=== PATIENT | male | born 1970 | race Caucasian/White ===

== ENCOUNTER 2017-11-28 19:48 | Observation (INO) | payer BC ==
[2017-11-28] MEDS ORDERED: IPRATROPIUM-ALBUTEROL 3 ML NEB INHALATION STA (20:10)
[2017-11-28] MEDS ORDERED: SODIUM CHLORIDE 0.9% 1,000 ML IV STA ×2 (20:10)
[2017-11-28] MEDS ORDERED: KETOROLAC 30 MG/ML 1 ML VIAL IVP STA (20:20)
[2017-11-28 20:22] LABS: Glucose,Whole Blood 173 mg/dL (75-99)
[2017-11-28 20:42] LABS: D-Dimer 0.4 mg/L FEU (<0.60)
[2017-11-28 20:43] LABS: Albumin 5.1 g/dL (3.5-5.0); Calcium 9.8 mg/dL (8.4-10.2); Magnesium 1.7 mg/dL (1.6-2.3); Potassium 4.1 mmol/L (3.5-5.1); Total Bilirubin 1.9 mg/dL (0.2-1.3); Total Protein 7.8 g/dL (6.3-8.2)
[2017-11-28] MEDS ORDERED: LABETALOL 5 MG/ML VIAL MDV IVP STA (20:44)
--- NOTE | 2017-11-28 20:45 | ED ---
General Adult HPI - General Chief complaint: Chest Pain Stated complaint: Chest tightness Time Seen by Provider: 11/28/17 20:10 Source: patient, RN notes reviewed, old records reviewed Mode of arrival: wheelchair Limitations: no limitations - History of Present Illness Initial comments: This is a 39-year-old male to the ER for evaluation. Patient presented for multiple nonspecific symptoms. Patient states he has history of severe hypertension. Patient's blood pressure been elevated at home and has not been feeling well. Patient is recent blood pressure changes [facility] and was started on a new blood pressure medication yesterday. Patient's blood pressure still is is reviewed and is remained pretty labile. He also had some mild chest pain today but insignificant may be just palpitations. No shortness of breath. - Related Data Home Medications Medication Instructions Recorded Confirmed Atorvastatin [Lipitor] 13.3 mg PO HS 11/28/17 11/28/17 Carvedilol [Coreg] 6.25 mg PO BID 11/28/17 11/28/17 Hydrochlorothiazide [Hydrodiuril] 25 mg PO DAILY PRN 11/28/17 11/28/17 Losartan [Cozaar] 50 mg PO BID 11/28/17 11/28/17 amLODIPine [Norvasc] 10 mg PO HS 11/28/17 11/28/17 hydrALAZINE HCL [Apresoline] 75 mg PO BID 11/28/17 11/28/17 Allergies Allergy/AdvReac Type Severity Reaction Status Date / Time No Known Allergies Allergy Verified 11/28/17 20:44 Review of Systems ROS Statement: Those systems with pertinent positive or pertinent negative responses have been documented in the HPI. ROS Other: All systems not noted in ROS Statement are negative. Past Medical History Past Medical History: Asthma, Heart Failure, Hyperlipidemia Additional Past Medical History / Comment(s): 715-15 CHF AND HIGH BP AND C/O SEEING BLACK SPOTS IN VISION, ASTHMA CHILD History of Any Multi-Drug Resistant Organisms: None Reported Past Surgical History: No Surgical Hx Reported Past Anesthesia/Blood Transfusion Reactions: No Reported Reaction Past Psychological History: No Psychological Hx Reported Smoking Status: Former smoker Past Alcohol Use History: Abuse Past Drug Use History: Marijuana - Past Family History Mother Family Medical History: No Reported History Father Family Medical History: Congestive Heart Failure (CHF), Hyperlipidemia, Hypertension General Exam Limitations: no limitations General appearance: alert, in no apparent distress Head exam: Present: atraumatic, normocephalic, normal inspection Eye exam: Present: normal appearance, PERRL, EOMI. Absent: scleral icterus, conjunctival injection, periorbital swelling ENT exam: Present: normal exam, mucous membranes moist Neck exam: Present: normal inspection. Absent: tenderness, meningismus, lymphadenopathy Respiratory exam: Present: normal lung sounds bilaterally. Absent: respiratory distress, wheezes, rales, rhonchi, stridor Cardiovascular Exam: Present: normal rhythm, tachycardia, normal heart sounds. Absent: systolic murmur, diastolic murmur, rubs, gallop, clicks GI/Abdominal exam: Present: soft, normal bowel sounds. Absent: distended, tenderness, guarding, rebound, rigid Extremities exam: Present: normal inspection, full ROM, normal capillary refill. Absent: tenderness, pedal edema, joint swelling, calf tenderness Back exam: Present: normal inspection Neurological exam: Present: alert, oriented X3, CN II-XII intact Psychiatric exam: Present: normal affect, normal mood Skin exam: Present: warm, dry, intact, normal color. Absent: rash Course Vital Signs 11/28/17 11/28/17 11/28/17 20:00 20:28 20:57 Temperature 97.4 F L Pulse Rate 109 H 85 Respiratory 22 24 18 Rate Blood Pressure 174/99 191/92 O2 Sat by Pulse 100 100 Oximetry - Reevaluation(s) Reevaluation #1: 11/28/17 22:16 Patient's blood pressure at this point is much improved EKG Findings - EKG Comments: EKG Findings:: EKG shows normal sinus rhythm rate of 90, NC 186, QRS 94, QTC 440 Medical Decision Making - Medical Decision Making 47 male the ER with chest pain and uncontrolled blood pressure. Patient be admitted for tighter blood pressure control and evaluation by cardiology - Lab Data Result diagrams: 11/28/17 20:45 11/28/17 20:20 Lab Results 11/28/17 11/28/17 11/28/17 Range/Units 20:18 20:20 20:20 WBC (3.8-10.6) k/uL RBC (4.30-5.90) m/uL Hgb (13.0-17.5) gm/dL Hct (39.0-53.0) % MCV (80.0-100.0) fL MCH (25.0-35.0) pg MCHC (31.0-37.0) g/dL RDW (11.5-15.5) % Plt Count (150-450) k/uL Neutrophils % % Lymphocytes % % Monocytes % % Eosinophils % % Basophils % % Neutrophils # (1.3-7.7) k/uL Lymphocytes # (1.0-4.8) k/uL Monocytes # (0-1.0) k/uL Eosinophils # (0-0.7) k/uL Basophils # (0-0.2) k/uL PT (9.0-12.0) sec INR (<1.2) APTT (22.0-30.0) sec D-Dimer (<0.60) mg/L FEU Sodium 134 L (137-145) mmol/L Potassium 4.1 (3.5-5.1) mmol/L Chloride 96 L (98-107) mmol/L Carbon Dioxide 21 L (22-30) mmol/L Anion Gap 17 mmol/L BUN 17 (9-20) mg/dL Creatinine 1.37 H (0.66-1.25) mg/dL Est GFR (CKD-EPI)AfAm 70 (>60 ml/min/1.73 sqM) Est GFR (CKD-EPI)NonAf 61 (>60 ml/min/1.73 sqM) Glucose 159 H (74-99) mg/dL POC Glucose (mg/dL) 173 H (75-99) mg/dL POC Glu Flamer After Lasting ID Trina Infante Calcium 9.8 (8.4-10.2) mg/dL Magnesium 1.7 (1.6-2.3) mg/dL Total Bilirubin 1.9 H (0.2-1.3) mg/dL AST 32 (17-59) U/L ALT 34 (21-72) U/L Alkaline Phosphatase 78 (38-126) U/L Total Creatine Kinase 186 H (55-170) U/L CK-MB (CK-2) 1.0 (0.0-2.4) ng/mL CK-MB (CK-2) Rel Index 0.5 Troponin I 0.013 (0.000-0.034) ng/mL NT-Pro-B Natriuret Pep pg/mL Total Protein 7.8 (6.3-8.2) g/dL Albumin 5.1 H (3.5-5.0) g/dL 11/28/17 11/28/17 11/28/17 Range/Units 20:20 20:45 20:45 WBC 6.6 (3.8-10.6) k/uL RBC 4.74 (4.30-5.90) m/uL Hgb 13.9 (13.0-17.5) gm/dL Hct 39.6 (39.0-53.0) % MCV 83.5 (80.0-100.0) fL MCH 29.3 (25.0-35.0) pg MCHC 35.1 (31.0-37.0) g/dL RDW 12.7 (11.5-15.5) % Plt Count 164 (150-450) k/uL Neutrophils % 73 % Lymphocytes % 15 % Monocytes % 8 % Eosinophils % 2 % Basophils % 0 % Neutrophils # 4.9 (1.3-7.7) k/uL Lymphocytes # 1.0 (1.0-4.8) k/uL Monocytes # 0.5 (0-1.0) k/uL Eosinophils # 0.1 (0-0.7) k/uL Basophils # 0.0 (0-0.2) k/uL PT 9.5 (9.0-12.0) sec INR 0.9 (<1.2) APTT 22.4 (22.0-30.0) sec D-Dimer 0.40 (<0.60) mg/L FEU Sodium (137-145) mmol/L Potassium (3.5-5.1) mmol/L Chloride (98-107) mmol/L Carbon Dioxide (22-30) mmol/L Anion Gap mmol/L BUN (9-20) mg/dL Creatinine (0.66-1.25) mg/dL Est GFR (CKD-EPI)AfAm (>60 ml/min/1.73 sqM) Est GFR (CKD-EPI)NonAf (>60 ml/min/1.73 sqM) Glucose (74-99) mg/dL POC Glucose (mg/dL) (75-99) mg/dL POC Glu Flamer After Lasting ID Calcium (8.4-10.2) mg/dL Magnesium (1.6-2.3) mg/dL Total Bilirubin (0.2-1.3) mg/dL AST (17-59) U/L ALT (21-72) U/L Alkaline Phosphatase (38-126) U/L Total Creatine Kinase (55-170) U/L CK-MB (CK-2) (0.0-2.4) ng/mL CK-MB (CK-2) Rel Index Troponin I (0.000-0.034) ng/mL NT-Pro-B Natriuret Pep <11 pg/mL Total Protein (6.3-8.2) g/dL Albumin (3.5-5.0) g/dL - Radiology Data Radiology results: report reviewed (Chest x-rays negative for acute disease), image reviewed Disposition Clinical Impression: Hypertensive urgency, Chest pain Disposition: ADMITTED IP TO THIS [facility] Condition: Fair Referrals: Suzy Mortensen MD [Primary Care Provider] - 1-2 days
[2017-11-28 20:46] LABS: INR 0.9 (<1.2); Prothrombin Time 9.5 sec (9.0-12.0)
[2017-11-28 20:52] LABS: Partial Thromboplastin Time 22.4 sec (22.0-30.0)
--- NOTE | 2017-11-28 20:55 | XR ---
EXAMINATION: XR chest 1V portable DATE AND TIME: 11/28/2017 8:29 PM ORDERING PROVIDER: Yovani Ludwig DO CLINICAL INDICATION: sob TECHNIQUE: AP upright portable COMPARISON: 03/22/2015 DESCRIPTION: The lungs are clear. The pleural spaces are negative. The cardiac silhouette is not enlarged. The mediastinal and pleural silhouettes are unremarkable. The skeletal structures are intact without focal findings. The soft tissues are unremarkable. IMPRESSION: NO ACUTE PROCESS.
[2017-11-28 20:58] LABS: Troponin I 0.013 ng/mL (0.000-0.034)
[2017-11-28 20:59] LABS: Basophils % (A) 0 %; Eosinophils # (A) 0.1 k/uL (0-0.7); Eosinophils % (A) 2 %; HCT 39.6 % (39.0-53.0); HGB 13.9 gm/dL (13.0-17.5); Lymphocytes % (A) 15 %; MCH 29.3 pg (25.0-35.0); MCHC 35.1 g/dL (31.0-37.0); MCV 83.5 fL (80.0-100.0); Mean Platelet Volume 8.5; Monocytes # (A) 0.5 k/uL (0-1.0); Monocytes % (A) 8 %; Neutrophils # (A) 4.9 k/uL (1.3-7.7); Neutrophils % (A) 73 %; Platelet Count 164 k/uL (150-450); RBC 4.74 m/uL (4.30-5.90); RDW 12.7 % (11.5-15.5); WBC 6.6 k/uL (3.8-10.6)
[2017-11-28] MEDS ORDERED: NITROGLYCERIN SL TABS 0.4 MG TAB SUBLINGUAL PRN (22:14)
[2017-11-28] MEDS ORDERED: ASPIRIN 81 MG PO STA (22:14)
[2017-11-28] MEDS ORDERED: MORPHINE SULFATE/PF 10MG/10ML VL IV PRN (22:14)
[2017-11-28] MEDS ORDERED: SODIUM CHLORIDE 0.9% 1,000 ML IV SCH (22:15)
[2017-11-28] MEDS ORDERED: HYDROCHLOROTHIAZIDE 25 MG TAB PO PRN (22:15)
[2017-11-29 00:30] VITALS: BMI 28.5
[2017-11-29] MEDS ORDERED: amLODIPine 10 MG TAB PO STA (01:00)
[2017-11-29] MEDS ORDERED: CARVEDILOL 6.25 MG TAB PO STA (01:02)
[2017-11-29] MEDS ORDERED: LOSARTAN 50 MG TAB PO STA (01:02)
[2017-11-29] MEDS ORDERED: hydrALAZINE HCL 25 MG TAB PO STA (01:03)
[2017-11-29 03:18] LABS: Cholesterol 116 mg/dL (<200); HDL Cholesterol 52 mg/dL (40-60); LDL Cholesterol,Calculated 50 mg/dL (0-99); Triglycerides 69 mg/dL (<150)
[2017-11-29 03:32] LABS: Creatine Kinase 139 U/L (55-170)
[2017-11-29 03:45] LABS: Creatine Kinase MB 0.6 ng/mL (0.0-2.4); Troponin I <0.012 ng/mL (0.000-0.034)
[2017-11-29 04:55] VITALS: RESP 16
[2017-11-29] MEDS ORDERED: CARVEDILOL 6.25 MG TAB PO SCH (07:30)
[2017-11-29] MEDS ORDERED: ASPIRIN 325 MG TAB PO SCH (09:00)
[2017-11-29] MEDS ORDERED: hydrALAZINE HCL 25 MG TAB PO SCH (09:00)
[2017-11-29] MEDS ORDERED: LOSARTAN 50 MG TAB PO SCH (09:00)
[2017-11-29] MEDS ORDERED: METOPROLOL TARTRATE 50 MG TAB PO SCH (09:00)
[2017-11-29 09:09] LABS: Creatine Kinase 133 U/L (55-170)
[2017-11-29 09:20] LABS: Creatine Kinase MB 0.7 ng/mL (0.0-2.4); Troponin I <0.012 ng/mL (0.000-0.034)
--- NOTE | 2017-11-29 09:42 | CONS ---
CONSULTATION CHIEF COMPLAINT: Uncontrolled hypertension. HISTORY OF PRESENT ILLNESS: This is a 47-year-old gentleman with history of hypertension who has had somewhat of a poorly controlled blood pressures over the last several days and had his medications adjusted following which he started feeling dizzy, was in the [facility] and subsequently came to the ER. His blood pressures were poorly controlled on initial presentation, but he did not have any chest pain, palpitations, or syncope. He did not have any focal neurological deficits. At the time of my evaluation this morning, he appears comfortable at rest and is free of symptoms and ruled out for myocardial infarction. EKG does not reveal significant ST-T wave changes. His blood pressures are well controlled. LABS: Show that the hemoglobin is normal. D-dimer is normal. Two sets of troponins are negative and LDL cholesterol is negative. I had a long conversation with the patient about his hypertension treatment and long- term followup plans. I asked him to come have his blood pressure checked through my office, or go to Dr. Mortensen's office and have it checked. I will obtain a 2D echo on him and we should be able to discharge him home. PAST MEDICAL HISTORY: Significant for hypertension and dyslipidemia. MEDICATIONS: Include Apresoline 75 b.i.d., Norvasc 10 daily, losartan 50 b.i.d., HydroDIURIL 25 daily, Coreg 6.25 b.i.d., and Lipitor. ALLERGIES: There are no known drug allergies. FAMILY HISTORY: Negative for premature coronary artery disease. SOCIAL HISTORY: Negative for smoking. ETOH or drug abuse. REVIEW OF SYSTEMS: HEENT is unremarkable. Cardiac as described above. Respiratory negative. GI negative. negative. Allergy/immunology: Negative. Skin negative. Musculoskeletal negative. Endocrine negative. Oncological: Negative. Derm negative. Constitutional: Negative. Rest of the system review is not relevant. PHYSICAL EXAMINATION: On exam, comfortable at rest. Vital signs are stable. There is no jugular venous distention. Carotid upstroke is normal. There is no bruit. Chest exam reveals good air entry bilaterally. Heart exam reveals first and second heart sounds. No gallop. No murmur. No rub. Abdomen is soft, nontender. Exam of extremities did not reveal any edema. Peripheral pulses are felt. 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 LABORATORY DATA: Labs have been as reviewed. EKG appears normal. ASSESSMENT: Uncontrolled hypertension. PLAN: I will continue the patient on his current medications. Blood pressures are very well controlled. Cut back on the dose of the hydralazine to 50 b.i.d. from 75 b.i.d. continue rest of his medications. Obtain a 2D echo. Discharge him home and arrange outpatient followup through my office. ANDRY / AYAN: [id number] /
[2017-11-29] MEDS ORDERED: ACETAMINOPHEN TAB 325 MG TAB PO PRN (11:16)
[2017-11-29 12:05] VITALS: PULSE 72
--- NOTE | 2017-11-29 14:10 | ECHOF ---
Referral Reason:chest pain MEASUREMENTS -------- HEIGHT: 152.4 cm WEIGHT: 87.5 kg BP: RVIDd: 3.1 cm (< 3.3) IVSd: 1.3 cm (0.6 - 1.1) LVIDd: 4.1 cm (3.9 - 5.3) LVPWd: 1.2 cm (0.6 - 1.1) IVSs: 1.4 cm LVIDs: 3.0 cm LVPWs: 1.3 cm LA Diam: 3.1 cm (2.7 - 3.8) LAESV Index (A-L): 23.13 ml/m Ao Diam: 3.0 cm (2.0 - 3.7) AV Cusp: 1.7 cm (1.5 - 2.6) LA Diam: 3.1 cm (2.7 - 3.8) MV EXCURSION: 18.872 mm (> 18.000) MV EF SLOPE: 109 mm/s (70 - 150) EPSS: 0.2 cm MV E Edward: 0.69 m/s MV DecT: 228 ms MV A Edward: 0.68 m/s MV E/A Ratio: 1.02 RAP: 5.00 mmHg RVSP: 14.63 mmHg FINDINGS -------- Sinus rhythm. This was a technically good study. The left ventricular size is normal. There is mild concentric left ventricular hypertrophy. Overa ll left ventricular systolic function is normal with, an EF between 55 - 60 %. The right ventricle is normal in size. The left atrial size is normal. Normal LA size by volume 22+/-6 ml/m2. The right atrial size is normal. The aortic valve is trileaflet, and appears structurally normal. No aortic stenosis or regurgitation. Mild mitral regurgitation is present. Mild tricuspid regurgitation present. There is no evidence of pulmonary hypertension. The right v entricular systolic pressure, as measured by Doppler, is 14.63mmHg. There is no pulmonic regurgitation present. The aortic root size is normal. There is no pericardial effusion. CONCLUSIONS -------- 1. The left ventricular size is normal. 2. There is mild concentric left ventricular hypertrophy. 3. Overall left ventricular systolic function is normal with, an EF between 55 - 60 %. 4. Normal LA size by volume 22+/-6 ml/m2. 5. The aortic valve is trileaflet, and appears structurally normal. No aortic stenosis or regurgitati on. 6. Mild mitral regurgitation is present. 7. Mild tricuspid regurgitation present. 8. There is no evidence of pulmonary hypertension. 9. The right ventricular systolic pressure, as measured by Doppler, is 14.63mmHg. 10. There is no pulmonic regurgitation present. 11. The aortic root size is normal. 12. There is no pericardial effusion. HAUL TRUCK DRIVER: Sheron Ramirez RDCS
[2017-11-29 16:02] VITALS: BP 131/75; TEMP 97.9
--- NOTE | 2017-11-29 18:26 | P.HPIM ---
History of Present Illness Patient is a very pleasant 39-year-old gentleman came in to ER because of elevated blood pressure which led to anxiety patient denied any severe chest pain patient denied any fever chills nausea vomiting. Patient the blood pressure was highly elevated to 1.190 because of which he became concerned came to ER. Patient was given a few doses of hydralazine. Patient's elevation of blood pressure is found to be secondary to inappropriate measuring of blood pressure at home. Appropriate way to measure blood pressure counseling was provided. Patient is on hydrocodone thiazide which is being discontinued as his blood pressures seem to be on the low normal side and the due to renal dysfunction as well as hyponatremia patient appears to have chronic kidney disease from hypertensive nephrosclerosis. Given hydralazine dose was decreased to 250 twice a day from 75 twice a day patient will check his blood pressure twice a day and the take it to the primary care physician where his blood pressure medications can be titrated. Review of Systems REVIEW OF SYSTEMS: CONSTITUTIONAL: No fever, no malaise, no fatigue. HEENT: No recent visual problems or hearing problems. Denied any sore throat. CARDIOVASCULAR: No chest pain, orthopnea, PND, no palpitations, no syncope. PULMONARY: No shortness of breath, no cough, no hemoptysis. GASTROINTESTINAL: No diarrhea, no nausea, no vomiting, no abdominal pain. Normoactive bowel sounds. NEUROLOGICAL: No headaches, no weakness, no numbness. HEMATOLOGICAL: Denies any bleeding or petechiae. GENITOURINARY: Denies any burning micturition, frequency, or urgency. MUSCULOSKELETAL/RHEUMATOLOGICAL: Denies any joint pain, swelling, or any muscle pain. ENDOCRINE: Denies any polyuria or polydipsia. The rest of the 14-point review of systems is negative. Past Medical History Past Medical History: Asthma, Heart Failure, Hyperlipidemia Additional Past Medical History / Comment(s): 03-22-15 CHF AND HIGH BP AND C/O SEEING BLACK SPOTS IN VISION, ASTHMA CHILD History of Any Multi-Drug Resistant Organisms: None Reported Past Surgical History: No Surgical Hx Reported Past Anesthesia/Blood Transfusion Reactions: No Reported Reaction Past Psychological History: No Psychological Hx Reported Additional Psychological History / Comment(s): PT LIVES WITH LANDON,IS INDEPENDANT AND WORKS AT A [employer]. Smoking Status: Former smoker Past Alcohol Use History: Abuse Additional Past Alcohol Use History / Comment(s): QUIT SMOKING 15 YEARS AGO SMOKED FOR 3 YEARS 2-3 CIG PER DAY, PT IS RECOVERING ALCOHOLIC QUIT 9 MONTHS AGO DRANK HEAVY TIMES 15 YEARS. He is and lives in the family home with his . They have no children, and he has no children prior. 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 He has no experience. There is no international travel. The no [facility]. There are no animals in the home at this time, but there had been CAD exposures in the past. His parents are alive and well and are very healthy and active people. Past Drug Use History: Marijuana - Past Family History Mother Family Medical History: No Reported History Father Family Medical History: Congestive Heart Failure (CHF), Hyperlipidemia, Hypertension Medications and Allergies Home Medications Medication Instructions Recorded Confirmed Type Atorvastatin [Lipitor] 13.3 mg PO HS 11/28/17 11/29/17 History Carvedilol [Coreg] 6.25 mg PO BID 11/28/17 11/29/17 History Losartan [Cozaar] 50 mg PO BID 11/28/17 11/29/17 History amLODIPine [Norvasc] 10 mg PO HS 11/28/17 11/29/17 History ALPRAZolam [Xanax] 0.25 mg PO TID PRN #15 tab 11/29/17 Rx PARoxetine HCL [Paxil] 10 mg PO DAILY #30 tab 11/29/17 Rx hydrALAZINE HCL [Apresoline] 50 mg PO BID tab 11/29/17 Rx Allergies Allergy/AdvReac Type Severity Reaction Status Date / Time No Known Allergies Allergy Verified 11/28/17 23:30 Physical Exam Vitals: Vital Signs Temp Pulse Pulse Resp BP BP Pulse Ox 11/29/17 16:00 97.9 F 72 16 131/75 95 11/29/17 12:00 97.8 F 72 16 127/81 94 L 11/29/17 08:00 97.9 F 70 16 105/59 97 11/29/17 04:00 98.3 F 70 16 108/58 98 11/29/17 03:24 64 18 11/29/17 00:00 98 F 66 18 142/82 97 11/28/17 23:12 98.4 F 90 18 147/89 98 11/28/17 22:21 97.8 F 68 16 149/78 96 11/28/17 20:57 85 18 191/92 100 11/28/17 20:28 24 11/28/17 20:00 97.4 F L 109 H 22 174/99 100 Intake and Output 11/29/17 11/29/17 11/29/17 06:59 14:59 22:59 Intake Total 1350 Balance 1350 Intake: Amount of Fluid Infused ( 1000 ml) Intake, IV Titration 50 Amount Sodium Chloride 0.9% 1, 50 000 ml @ 20 mls/hr IV . Q24H [facility] Rx#:[id number] Oral 300 Other: Voiding Method Toilet Toilet # Voids 2 Weight 88 kg PHYSICAL EXAMINATION: GENERAL: The patient is alert and oriented x3, not in any acute distress. Well developed, well nourished. HEENT: Pupils are round and equally reacting to light. EOMI. No scleral icterus. No conjunctival pallor. Normocephalic, atraumatic. No pharyngeal erythema. No thyromegaly. CARDIOVASCULAR: S1 and S2 present. No murmurs, rubs, or gallops. PULMONARY: Chest is clear to auscultation, no wheezing or crackles. ABDOMEN: Soft, nontender, nondistended, normoactive bowel sounds. No palpable organomegaly. MUSCULOSKELETAL: No joint swelling or deformity. EXTREMITIES: No cyanosis, clubbing, or pedal edema. NEUROLOGICAL: Gross neurological examination did not reveal any focal deficits. SKIN: No rashes. Results CBC & Chem 7: 11/28/17 20:45 11/28/17 20:20 Labs: Abnormal Lab Results - Last 24 Hours (Table) 11/28/17 11/28/17 11/28/17 Range/Units 20:18 20:20 20:20 Sodium 134 L (137-145) mmol/L Chloride 96 L (98-107) mmol/L Carbon Dioxide 21 L (22-30) mmol/L Creatinine 1.37 H (0.66-1.25) mg/dL Glucose 159 H (74-99) mg/dL POC Glucose (mg/dL) 173 H (75-99) mg/dL Total Bilirubin 1.9 H (0.2-1.3) mg/dL Total Creatine Kinase 186 H (55-170) U/L Albumin 5.1 H (3.5-5.0) g/dL Thrombosis Risk Factor Assmnt - Choose All That Apply Each Factor Represents 1 point: Age 41-60 years Thrombosis Risk Factor Assessment Total Risk Factor Score: 1 Thrombosis Risk Factor Assessment Level: Low Risk Assessment and Plan Plan: -Accelerated hypertension: Secondary to anxiety disorder. Patient was given prescription for paroxetine and Xanax on as-needed basis. Next and- hyperlipidemia -hypertension further management as mentioned above.
--- NOTE | 2017-11-29 18:26 | P.DS ---
Providers Date of admission: 11/28/17 22:14 Attending physician: Marla Barron Consults: 11/28/17 22:14 Consult Physician Urgent Consulting Provider: Khalif Ny Consult Reason/Comments: cp Do you want consulting provider notified?: Yes Primary care physician: Suzy Mortensen Hospital Course: Please refer to my HPI Patient Condition at Discharge: Fair Plan - Discharge Summary Discharge Rx Participant: No New Discharge Prescriptions: New ALPRAZolam [Xanax] 0.25 mg PO TID PRN #15 tab PRN Reason: Anxiety hydrALAZINE HCL [Apresoline] 50 mg PO BID tab PARoxetine HCL [Paxil] 10 mg PO DAILY #30 tab Continue Atorvastatin [Lipitor] 13.3 mg PO HS amLODIPine [Norvasc] 10 mg PO HS Losartan [Cozaar] 50 mg PO BID Carvedilol [Coreg] 6.25 mg PO BID Discontinued hydrALAZINE HCL [Apresoline] 75 mg PO BID Hydrochlorothiazide [Hydrodiuril] 25 mg PO DAILY PRN PRN Reason: HIGH BLOOD PRESSURE Discharge Medication List Atorvastatin [Lipitor] 13.3 mg PO HS 11/28/17 [History] Carvedilol [Coreg] 6.25 mg PO BID 11/28/17 [History] Losartan [Cozaar] 50 mg PO BID 11/28/17 [History] amLODIPine [Norvasc] 10 mg PO HS 11/28/17 [History] ALPRAZolam [Xanax] 0.25 mg PO TID PRN #15 tab 11/29/17 [Rx] PARoxetine HCL [Paxil] 10 mg PO DAILY #30 tab 11/29/17 [Rx] hydrALAZINE HCL [Apresoline] 50 mg PO BID tab 11/29/17 [Rx] Follow up Appointment(s)/Referral(s): Suzy Mortensen MD [Primary Care Provider] - 1-2 days Naveed Oliver MD [STAFF PHYSICIAN] - 1 Week (Office will call to arrange follow up appointment) Patient Instructions/Handouts: Hypertension (DC) Discharge Disposition: HOME SELF-CARE
[2017-11-29] MEDS ORDERED: amLODIPine 10 MG TAB PO SCH (21:00)
[2017-11-29] MEDS ORDERED: hydrALAZINE HCL 50 MG TAB PO SCH (21:00)
== END 2017-11-29 17:05 | disposition home or self-care (01) ==
LOC: EC 19:48 → 3SUR 22:14
PROVIDERS: ADMIT Hospitalist; ATTEND Hospitalist
DX: F41.9 Anxiety disorder, unspecified (principal); I16.0 Hypertensive urgency; I11.0 Hypertensive heart disease with heart failure; I50.9 Heart failure, unspecified; Z87.891 Personal history of nicotine dependence; E78.5 Hyperlipidemia, unspecified; Z79.899 Other long term (current) drug therapy; E87.1 Hypo-osmolality and hyponatremia
CPT/HCPCS: 99285 ×2; 96374 ×2; 96361 ×6; 36415; 93005; 93306; 85379; 83880; 80061; 80053; 82550 ×2; 82553 ×2; 83735; 84484 ×2; 85025; 85610; 85730; 71045; G0378 ×2

== ENCOUNTER 2021-12-27 19:06 | Emergency (ER) | payer BC, OTHER ==
[2021-12-27 20:22] VITALS: RESP 18; TEMP 96.8
[2021-12-27 20:48] LABS: Appearance,Urine Clear (Clear); Bilirubin,Urine Negative (Negative); Blood,Urine Negative (Negative); Color,Urine Light Yellow; Glucose,Urine (UA) Negative (Negative); Ketones,Urine 1+ (Negative); Leukocyte Esterase,Urine Small (Negative); Nitrite,Urine Negative (Negative); Protein,Urine Negative (Negative); RBC,Urine 1 /hpf (0-5); Specific Gravity,Urine 1.007 (1.001-1.035); Urobilinogen,Urine <2.0 mg/dL (<2.0); WBC,Urine 2 /hpf (0-5)
--- NOTE | 2021-12-27 23:32 | CT ---
EXAMINATION TYPE: CT abdomen pelvis wo con DATE OF EXAM: 12/27/2021 COMPARISON: None HISTORY: LT SIDED ABD PAIN. PT THINKS HE GOT HERNIA FROM PULLING AT WORK CT DLP: 518 mGycm Automated exposure control for dose reduction was used. Images obtained from the diaphragm to the floor of the pelvis without contrast. Lung bases are clear. There is no pleural effusion. Heart size is normal. No pericardial effusion. Th ere is 2 cm hypodensity in the superior right lobe of the liver. This is slightly irregular and could be a hemangioma. Gallbladder is intact. The bile ducts are not dilated. Spleen is intact. There is n o pancreatic mass. The stomach appears intact. There is no adrenal mass. Kidneys have normal size. There is no hydronephrosis. Ureters are not dilat ed. There is no retroperitoneal adenopathy. The bladder distends smoothly. There is no inguinal herni a. No free fluid in the pelvis. There are multiple large bowel diverticula. No diverticulitis. There is some minimal fat stranding in the small bowel mesentery. The lumbar vertebrae have normal alignment. No compression fracture. There is narrowing at L5-S1 disc space. Posterior elements are intact. The sacroiliac joints are intact. Hip joints are intact. IMPRESSION: There is moderate colonic diverticulosis without diverticulitis. Mild small bowel mesenteric edema of uncertain significance. No evidence of any significant intestina l wall thickening.
[2021-12-27] MEDS ORDERED: AMOXIC-POT CLAV 875-125MG 1 EACH TAB PO STA (23:50)
--- NOTE | 2021-12-27 23:54 | ED ---
General Adult HPI - General Chief complaint: Urogenital Stated complaint: IHS-L side pain Time Seen by Provider: 12/27/21 22:37 Source: patient Mode of arrival: ambulatory Limitations: no limitations - History of Present Illness Initial comments: Patient is a 51-year-old male who reports to the emergency department with left side pain. Patient states he hurt himself at work couple weeks ago and the pain initially improved but does not fully resolving. No known mechanism of injury but states he is very active at work and assumes it is likely the cause of his pain. Patient states it sometimes radiates into his left testicle. Rotation of the spine worsens the pain. Patient denies history of kidney stone, kidney infection, and hernia. He has no other concerns this time including fever, chills, chest pain, shortness of breath, nausea, vomiting, diarrhea, burning with urination, blood in the urine, testicular swelling, and back pain. He has no concern for sexually transmitted infections. - Related Data Home Medications Medication Instructions Recorded Confirmed Atorvastatin [Lipitor] 13.3 mg PO HS 11/28/17 11/29/17 Losartan [Cozaar] 50 mg PO BID 11/28/17 11/29/17 amLODIPine [Norvasc] 10 mg PO HS 11/28/17 11/29/17 carvediloL [Coreg] 6.25 mg PO BID 11/28/17 11/29/17 Previous Rx's Medication Instructions Recorded ALPRAZolam [Xanax] 0.25 mg PO TID PRN #15 tab 11/29/17 PARoxetine HCL [Paxil] 10 mg PO DAILY #30 tab 11/29/17 hydrALAZINE HCL [Apresoline] 50 mg PO BID tab 11/29/17 Amoxicillin/Potassium Clav 1 tab PO Q12HR #20 tab 12/27/21 [Augmentin 875-125 Tablet] Allergies Allergy/AdvReac Type Severity Reaction Status Date / Time No Known Allergies Allergy Verified 11/28/17 23:30 Review of Systems ROS Statement: Those systems with pertinent positive or pertinent negative responses have been documented in the HPI. ROS Other: All systems not noted in ROS Statement are negative. Past Medical History Past Medical History: Asthma, Heart Failure, Hyperlipidemia Additional Past Medical History / Comment(s): 03-22-15 CHF AND HIGH BP AND C/O SEEING BLACK SPOTS IN VISION, ASTHMA CHILD History of Any Multi-Drug Resistant Organisms: None Reported Past Surgical History: No Surgical Hx Reported Past Anesthesia/Blood Transfusion Reactions: No Reported Reaction Past Psychological History: No Psychological Hx Reported Smoking Status: Never smoker Past Alcohol Use History: Abuse Past Drug Use History: Marijuana - Past Family History Mother Family Medical History: No Reported History Father Family Medical History: Congestive Heart Failure (CHF), Hyperlipidemia, Hypertension General Exam Limitations: no limitations General appearance: alert, in no apparent distress Head exam: Present: atraumatic, normocephalic, normal inspection Eye exam: Present: normal appearance, PERRL, EOMI. Absent: scleral icterus, conjunctival injection, periorbital swelling Neck exam: Present: normal inspection, full ROM Respiratory exam: Present: normal lung sounds bilaterally. Absent: respiratory distress, wheezes, rales, rhonchi, stridor Cardiovascular Exam: Present: regular rate, normal rhythm, normal heart sounds. Absent: systolic murmur, diastolic murmur, rubs, gallop, clicks GI/Abdominal exam: Present: soft, normal bowel sounds. Absent: distended, tenderness, guarding, rebound, rigid exam: Present: normal inspection. Absent: testicular tenderness, urethral discharge, scrotal swelling External exam: Present: normal external exam Back exam: Present: normal inspection, full ROM. Absent: tenderness, CVA tenderness (R), CVA tenderness (L) Neurological exam: Present: alert, oriented X3, CN II-XII intact Psychiatric exam: Present: normal affect, normal mood Skin exam: Present: warm, dry, intact, normal color. Absent: rash Course Vital Signs 12/27/21 12/28/21 20:19 00:09 Temperature 96.8 F L Pulse Rate 93 71 Respiratory 18 18 Rate Blood Pressure 170/88 176/97 O2 Sat by Pulse 97 97 Oximetry Medical Decision Making - Medical Decision Making This is a 51-year-old male who presents with left side with intermittent radiation into the left testicle. Thorough history and examination were performed. Patient is afebrile. He denies history of cardiac, kidney stone, kidney infection. No nausea or vomiting. No bloody urination or blood in the urine. No concern for STIs. The abdomen is soft and nontender. There is no CVA tenderness. Kidney stone and hernia on the differential. CT of the abdomen and pelvis without contrast was obtained that showed mild small bowel mesenteric edema uncertain significance. Results discussed with patient. Patient will be referred to GI specialist for further evaluation and management. Although this is likely viral etiology I will cover with antibiotic should it be bacterial. Patient and his verbalized understanding and agreeable to plan. Dr. Roach is my attending. - Lab Data Lab Results 12/27/21 Range/Units 20:25 Urine Color Light Yellow Urine Appearance Clear (Clear) Urine pH 6.0 (5.0-8.0) Ur Specific [place] 1.007 (1.001-1.035) Urine Protein Negative (Negative) Urine Glucose (UA) Negative (Negative) Urine Ketones 1+ H (Negative) Urine Blood Negative (Negative) Urine Nitrite Negative (Negative) Urine Bilirubin Negative (Negative) Urine Urobilinogen <2.0 (<2.0) mg/dL Ur Leukocyte Esterase Small H (Negative) Urine RBC 1 (0-5) /hpf Urine WBC 2 (0-5) /hpf Disposition Clinical Impression: Left flank pain Disposition: HOME SELF-CARE Condition: Good Instructions (If sedation given, give patient instructions): Acute Abdominal Pain (ED) Additional Instructions: Please take medication as directed. Follow up with GI specialist in 1-2 days. Return to the emergency department if you experience new, concerning, or worsening symptoms. Prescriptions: Amoxicillin/Potassium Clav [Augmentin 875-125 Tablet] 1 tab PO Q12HR #20 tab Is patient prescribed a controlled substance at d/c from ED?: No Referrals: Piero Whalen MD [Primary Care Provider] - 1-2 days Janet Oliver MD [STAFF PHYSICIAN] - 1-2 days Time of Disposition: 23:53
[2021-12-28 00:10] VITALS: BP 176/97; PULSE 71
== END 2021-12-28 00:30 | disposition home or self-care (01) ==
LOC: EC 19:06
DX: K57.30 Diverticulosis of large intestine without perforation or abscess without bleeding (principal); E78.5 Hyperlipidemia, unspecified; I50.9 Heart failure, unspecified; J45.909 Unspecified asthma, uncomplicated; Z79.899 Other long term (current) drug therapy
CPT/HCPCS: 74176; 81001; 99284

== ENCOUNTER → 2022-01-31 | Day surgery (SDC) | payer BC, OTHER ==
[2022-01-30 14:27] VITALS: BMI 26.6
[~2022-01-31] MED LIST: LACTATED RINGERS 1,000 ML IV ONE; PROPOFOL 10 MG/ML 20 ML VIAL IV ONE
[2022-01-31 09:41] VITALS: TEMP 97
--- NOTE | 2022-01-31 10:05 | P.PCN ---
Date of Procedure: 01/31/22 Procedure(s) Performed: BRIEF HISTORY: Patient is a 52-year-old pleasant white male scheduled for an elective colonoscopy as a part of gaining for colorectal neoplasia. PROCEDURE PERFORMED: Colonoscopy. PREOPERATIVE DIAGNOSIS: Screening for colon cancer. IV sedation per Anesthesia. PROCEDURE: After informed consent was obtained, the patient, was brought into the endoscopy unit. IV sedation was administered by Anesthesia under continuous monitoring. Digital rectal examination was normal. Initially the Olympus CF-160 flexible video colonoscope was then inserted in the rectum, gradually advanced into the cecum without any difficulty. Careful examination was performed as the scope was gradually being withdrawn. Ileocecal valve and the appendiceal orifice were visualized and appeared normal. Prep was excellent. Mucosa of the cecum, ascending colon, transverse colon, descending colon, sigmoid colon, and rectum appeared normal. Diffuse diverticulosis noted throughout the entire colon Retroflexion was performed in the rectum and no lesions were seen. The patient tolerated the procedure well. IMPRESSION: Normal-appearing colon from rectum to cecum with no evidence of colorectal neoplasia Diffuse scattered diverticulosis . RECOMMENDATIONS: Findings of this examination were discussed with the patient as well as his family.. He was advised to have a repeat screening colonoscopy in 10 years
[2022-01-31 10:15] VITALS: BP 110/72; PULSE 68; RESP 12
== END ==
LOC: ORWHC2ENDO 08:48
PROVIDERS: ATTEND Internal Medicine Gastroenterology
DX: Z12.11 Encounter for screening for malignant neoplasm of colon (principal); K57.90 Diverticulosis of intestine, part unspecified, without perforation or abscess without bleeding
CPT/HCPCS: G0121; J2704

== ENCOUNTER → 2022-06-12 | Outpatient (CLI) | payer OTHER ==
--- NOTE | 2022-06-21 19:19 | P.CEMON ---
7 Day Event monitor note: Patient wore an event monitor for 7 days from 06/12/2022 until 06/18/2022. Findings: Patient's baseline heart rate was sinus rhythm. There were no signficant atrial fibrillation, atrial flutter, or ventricular tachycardia episodes. There were no significant pauses greater than 2 seconds. There were frequent PACs. There were rare PVCs There is no significant SVT Majority of patient's symptoms corresponded with PACs and rarely with PVCs Conclusions: 7 day event monitor showing normal sinus rhythm with frequent PACs and rare PVCs. Majority of symptoms corresponded with PACs and rarely with PVCs.
== END | disposition home or self-care (01) ==
LOC: RADECHMAIN 07:22
PROVIDERS: ATTEND Family Medicine
DX: R00.2 Palpitations (principal)
CPT/HCPCS: 93270